=== PATIENT | male | born 1955 ===

== ENCOUNTER 2019-11-29 09:34 | Outpatient (RCR) | payer OTHER, SELFPAY ==
[2019-11-29 10:10] VITALS: BP_SYST 130
--- NOTE | 2019-11-29 11:16 | PTOPEVAL ---
PHYSICAL THERAPY EVALUATION AND PLAN OF CARE 11-29-2019 The PT evaluation was completed today for the diagnosis of s/p R total shoulder replacement. The plan of care is scheduled for 2x/week for 5 weeks. Thank you for referring this patient to [facility]. Please review, sign, date and return this plan of care MARAH. I agree with and certify that the following plan of care is medically necessary. Referring Physician Date Attending Provider: Dr. Flip Newby *PT Outpatient Evaluation Start: 11/29/19 10:14 Document 11/29/19 10:10 DARIO (Rec: 11/29/19 11:03 DARIO [id number]) Outpatient Past Medical History Neurological History Hx Seizures Yes: take meds to control Cardiovascular History Hx Atrial Fibrillation Yes: meds Hx Pacemaker Yes Respiratory History Hx Sleep Apnea Yes: CPAP machine Gastrointestinal History Hx Gastrointestinal Disorders No Significant History Genitourinary History Hx Genitourinary Disorders No Significant History Musculoskeletal History Hx Back Pain Yes: buldge disk L: 4-5-6; Hx Joint Replacement Yes: R shoulder, B knees, L hip replacements Hematological History Hx Hematological Disorders No Significant History Endocrine History Hx Endocrine Disorders No Significant History HEENT History Hx Other HEENT Disorders Yes: tear in esophagus/ open with tube/balloon Integumentary History Hx Skin Disorders No Significant History Other History Hx Other Surgeries Yes: removal tumor R ear-nerve cut, cause R eye tears Evaluation Information Problem Diagnosis s/p R shoulder replacement Onset Jul 16, 2019 Subjective Information had therapy at another Query Text:As Reported By Patient/ facility, stop there about 4 Family weeks, due to not taking insurance there; doing HEP from them- doing theraband exer in doorway; active motions of shoulder pendulum, stretch arm up wall; pt reports restriction of not over do moving shoulder and not stretch arm behind him too far; Prior Level of Function Activity Level (Last 3 Months) Occupation not working outside home Hand Dominance Right Activity of Daily Living Ability Needs Some Help Indoor/Home Mobility Needs Some Help Cooking No Cleaning No Laundry No Shopping No Driving
--- NOTE | 2019-12-24 11:50 | PCPTNOTE ---
Patient called & cancelled scheduled appointment this date stated got a call from help desk specialist wanting to see him MARAH today.
--- NOTE | 2019-12-26 16:12 | PCPTNOTE ---
Patient did not show up for scheduled appointment this date.
--- NOTE | 2020-01-11 13:44 | PCPTNOTE ---
PHYSICAL THERAPY DISCHARGE 01-11-2020 Attending Provider: Dr. Flip Newby Patient:Lenin French Date of :1955 Mr. French has not returned for any further treatments since the PT evaluation on 11/29/2019, for the diagnosis of s/p R shoulder replacement. Therefore he will be discharged from therapy at this time. The goals were not assessed. Thank you for referring Lenin to [facility]. Please review, sign, date and return this discharge summary MARAH. I have been updated about the patient's current status and I agree with discharge from the above service at this time. Referring Physician Date
== END 2020-01-14 09:27 | disposition home or self-care (01) ==
LOC: ANHPT 09:34
DX: M19.011 Primary osteoarthritis, right shoulder (principal)
CPT/HCPCS: 97161